=== PATIENT | male | born 1975 | race Caucasian/White ===

== ENCOUNTER 2018-10-22 05:37 | Emergency (ER) | payer SELFPAY ==
[~2018-10-22] VITALS: Ht 185.4 cm; Wt 90.7 kg
[~2018-10-22 05:37] MED LIST: CIPRO500 MG PO; DIFLUCAN100 MG PO; NAPROSYN500 MG PO; NKHM; PERCOCET 325 MG1 TA2 PO; PYRIDIUM200 MG PO; SUBOXONE 8 MG-21 TA1 PO; VIBRAMYCIN100 MG PO; VICODIN ES 7501 TAB PO; WELLBUTRIN SR150 MG PO; ZITHROMAX Z PA250 MG PO
[2018-10-22] MEDS ORDERED: PENICILLIN-VK500 M1 PO (06:14)
[2018-10-22] MEDS ORDERED: NORCO 5-325 TA1 EACH PO (06:14)
== END 2018-10-22 06:34 | disposition home or self-care (01) ==
LOC: ED 05:37
DX: K04.7 Periapical abscess without sinus (principal); K02.9 Dental caries, unspecified; F17.200 Nicotine dependence, unspecified, uncomplicated; Z79.899 Other long term (current) drug therapy

== ENCOUNTER 2020-05-27 11:44 | Emergency (ER) | payer SELFPAY ==
[~2020-05-27] VITALS: Wt 109.8 kg
[~2020-05-27 11:44] MED LIST changes: +NORCO 5-325 TA1 EACH PO; +PENICILLIN-VK500 M1 PO
[2020-05-27 12:19] LABS: BILIRUBIN Negative (Negative); BLOOD 2+ (Negative); CLARITY Clear (Clear); COLOR Dark Yellow (Yellow); GLUCOSE Negative (Negative); KETONE Trace (Negative); LEUKO ESTERASE 1+ (Negative); NITRITE Negative (Negative); PH 6.5 (4.5-8.0)
[2020-05-27 12:29] LABS: BACTERIA TRACE; MUCOUS 2+; RBC 31-40 rbc/hpf (0-2)
[2020-05-27 12:35] LABS: HEMATOCRIT 47.6 % (42.0-52.0); MEAN CELL VOLUME 85.6 fl (80.0-94.0); MEAN CORPUSCULAR HGB 28.1 pg (27.0-31.0); MEAN CORPUSCULAR HGB CONC 32.8 g/dl (33.0-37.0); MEAN PLATELET VOLUME 9.3 fl (9.6-12.3); PLATELET COUNT AUTOMATED 332 10*3/uL (130-400); RED BLOOD COUNT 5.56 10*6/uL (4.50-5.90); WHITE BLOOD COUNT 16.1 10*3/uL (4.8-10.8)
[2020-05-27 12:51] LABS: PLATELET SUFFICIENCY NORMAL (NORMAL); TOTAL CELLS COUNTED 100 #CELLS
[2020-05-27 12:52] LABS: ALBUMIN 3.7 gm/dl (3.1-4.5); ALKALINE PHOSPHATASE 81 U/L (45-117); BUN 12 mg/dl (7-24); CHLORIDE 107 mmol/L (98-107); CREATININE 0.98 mg/dL (0.70-1.30); LIPASE 624 U/L (73-393); POTASSIUM 3.5 mmol/L (3.5-5.1); SGOT/AST 18 IU/L (3-35); SGPT/ALT 43 U/L (12-78); SODIUM 139 mmol/L (136-145)
[2020-05-27 13:18] LABS: CHOLESTEROL 156 mg/dL (<200); HDL CHOLESTEROL 40 mg/dl (40-60); LDL CHOLESTEROL 85 mg/dL (9-159); TRIGLYCERIDES 157 mg/dl (<150); VLDL CHOLESTEROL 31 mg/dL (6-40)
[2020-05-27] MEDS ORDERED: ZOFRAN4 MG PO (14:21)
== END 2020-05-27 17:39 | disposition home or self-care (01) ==
LOC: ED 11:44
PROVIDERS: Emergency Medicine
DX: K52.9 Noninfective gastroenteritis and colitis, unspecified (principal); R31.9 Hematuria, unspecified; Z79.2 Long term (current) use of antibiotics; Z79.899 Other long term (current) drug therapy